=== PATIENT | female | born 1955 | race Caucasian/White ===

== ENCOUNTER 2018-06-14 08:45 | Day surgery (SDC) | payer MEDICARE ==
[~2018-06-14] VITALS: Ht 160 cm; Wt 88.9 kg
[2018-06-14] MEDS ORDERED: TOLTERODINE TART4 MG PO (09:10)
[2018-06-14] MEDS ORDERED: PRILOSEC OTC20 MG PO (09:10)
[2018-06-14] MEDS ORDERED: ADVIL PM CAPLE1 EACH PO (09:11)
--- NOTE | 2018-06-14 11:07 | NUR ---
06/14/18 1107 Halley García 1058 PATIENT ARRIVES TO PACU AWAKE, BUT DROWSY. RESP EVEN AND UNLABORED, ROOM AIR SATS >90%. 1100 PATIENT REPOSITIONS SELF. SITTING UP DRINKING WATER.
--- NOTE | 2018-06-15 08:42 | OR ---
[facility] [address], [place] [address] Signed DATE OF OPERATION: 06/14/2018 SURGEON: Rosalinda Manjarrez MD PREOPERATIVE DIAGNOSIS: Screening. POSTOPERATIVE DIAGNOSES: 1. A 6 mm polyp proximal right colon. 2. A 4 mm polyp at 42 cm. 3. A 4 mm polyp at 8 cm. 4. A 3 mm polyps at 4 cm. 5. Minimal to moderate internal hemorrhoids. PROCEDURE PERFORMED: Colonoscopy with hot biopsy. ESTIMATED BLOOD LOSS: None. INDICATIONS: Aliya is a 63-year-old female asked to see me for routine followup colonoscopy. She had a negative colonoscopy around 2007 or 2008 over in [place], [place]. She was told that was negative. She did well with Versed and fentanyl. However, she told me opioids do make her sick and even the epidural made her sick and she had nausea and vomiting. Consequently, we decided to give her Zofran and Phenergan prior to the procedure. She told me there is no family history of colon cancer or polyps. She has no lower GI complaints. I had met with Aliya in the office and I gave her a pamphlet on colonoscopy. She understands the nature of the test along with the risks including, but not limited to gas, bloating, crampy abdominal pain, bleeding, perforation, requiring surgery, and missed diagnosis. She also understands the need for IV conscious sedation. She had expressed understanding and wished to proceed. PROCEDURE NOTE: Aliya was taken into endoscopy suite and placed in the left lateral decubitus position. She was given IV sedation with 7 mg of Versed and 125 mcg of fentanyl. A digital rectal exam was performed. This was unremarkable. The adult colonoscope was introduced and advanced all the way around into the cecum under direct visualization of camera without difficulty. It took some extra sedation and abdominal compression in order to advance the scope. Her prep was quite clean. The scope was then slowly Portions of this report were created using voice recognition software. There may be inadvertent computer error. Please read with context in mind. If there are any questions, please contact me. Electronically Signed By: ROSALINDA MANJARREZ MD 06/15/18 0842 PATIENT NAME: ALIYA ALCAZAR [facility] OPERATIVE REPORT DATE OF : 55 REPORT #: [id number] PHYSICIAN: ROSALINDA MANJARREZ MD PCP: UNASSIGNED DOCTOR REPORT IS CONFIDENTIAL AND NOT TO BE RELEASED WITHOUT AUTHORIZATION [facility] [address] [place], [place] [address] Signed withdrawn. We took pictures throughout for photodocumentation. The above-mentioned polyps were easily removed with the help of hot biopsy forceps. We saw no evidence of any diverticulosis. Once back in the rectum, the scope had been retroflexed and she really has just minimal internal standard hemorrhoid tissue. After this, the gas was suctioned out and colonoscope removed. Aliya tolerated the procedure quite well. RECOMMENDATIONS: I will see Aliya back in my office in 7 to 14 days to review her results. Rosalinda Manjarrez MD ALB/MODL /[id number] cc: DO Rosalinda Finnegan MD Patricia J Winn, MD Copies: CHARLINE WALKER ANDREW L MD WINN,WADE Schultz MD ~ Portions of this report were created using voice recognition software. There may be inadvertent computer error. Please read with context in mind. If there are any questions, please contact me. Electronically Signed By: ROSALINDA MANJARREZ MD 06/15/18 0842 PATIENT NAME: [facility] O[facility] REPORT DATE OF : 55 REPORT #: [id number] PHYSICIAN: ROSALINDA MANJARREZ MD PCP: UNASSIGNED DOCTOR REPORT IS CONFIDENTIAL AND NOT TO BE RELEASED WITHOUT AUTHORIZATION
== END 2018-06-14 11:25 | disposition home or self-care (01) ==
LOC: OPS 08:45 → DS 08:45 → OPS 11:25
PROVIDERS: Colon & Rectal Surgery
PROC: 0DBE8ZZ Excision of Large Intestine, Via Natural or Artificial Opening Endoscopic (ICD-10-PCS; 2018-06-14)
PROC: 0DBF8ZX Excision of Right Large Intestine, Via Natural or Artificial Opening Endoscopic, Diagnostic (ICD-10-PCS; principal; 2018-06-14 10:30)
DX: Z12.11 Encounter for screening for malignant neoplasm of colon (principal); K63.5 Polyp of colon; K64.8 Other hemorrhoids; G47.33 Obstructive sleep apnea (adult) (pediatric); E78.00 Pure hypercholesterolemia, unspecified; K21.9 Gastro-esophageal reflux disease without esophagitis; E66.9 Obesity, unspecified; Z68.34 Body mass index [BMI] 34.0-34.9, adult; Z79.899 Other long term (current) drug therapy; Z88.2 Allergy status to sulfonamides; Z88.5 Allergy status to narcotic agent; Z88.8 Allergy status to other drugs, medicaments and biological substances
CPT/HCPCS: 88305; 99153; G0500; J2250; J2405; J2550; J3010; J7120